=== PATIENT | female | born 1930 | race Caucasian/White ===

== ENCOUNTER 2019-03-25 17:59 | Emergency (ER) | payer OTHER ==
[~2019-03-25] VITALS: Ht 167.6 cm; Wt 69.0 kg
[2019-03-25 20:26] VITALS: BP 176/77
--- NOTE | 2019-03-26 10:04 | EKG ---
[address] [place] [address] ELECTROCARDIOGRAM REPORT Name: TORSTEN FROST Room #: DEP [facility]#: [id number] Admission: 03/25/19 Attend Phys: Discharge: 03/25/19 Date of : [birth year] Report #: [id number] THIS REPORT FOR: //name// [facility] ED Test Date: 2019-03-25 Test Time: 20:25:54 Pat Name: TORSTEN FROST Department: Room: Gender: F Transverse Abdominal Muscle Surgeon: JOSE : 1930 Requested By: Aroldo Dunlap Order Number: [id number] MD: Miguel Yao Measurements Intervals [place] Rate: 50 P: 35 KS: 133 QRS: 44 QRSD: 98 T: 74 QT: 469 QTc: 428 Interpretive Statements Sinus rhythm Occasional premature ventricular complex Compared to ECG 05/29/2001 12:34:44 PVC is now present Electronically Signed On 03-26-2019 10:04:10 [facility] [employer] NEED CONSULTANT by Miguel Yao [email or web address] <ELECTRONICALLY SIGNED> By: Miguel Yao MD, [facility] 03/26/19 1004 24 24 Miguel Yao MD, FACC /EPI
== END 2019-03-25 20:59 | disposition home or self-care (01) ==
LOC: ER 17:59
DX: M25.561 Pain in right knee (principal); M25.551 Pain in right hip; M25.511 Pain in right shoulder; M25.571 Pain in right ankle and joints of right foot; G62.9 Polyneuropathy, unspecified; F03.90 Unspecified dementia, unspecified severity, without behavioral disturbance, psychotic disturbance, mood disturbance, and anxiety; Z90.710 Acquired absence of both cervix and uterus; Z91.013 Allergy to seafood; W01.0XXA Fall on same level from slipping, tripping and stumbling without subsequent striking against object, initial encounter; Y93.89 Activity, other specified; Y92.89 Other specified places as the place of occurrence of the external cause; Y99.8 Other external cause status